=== PATIENT | female | born 1950 | race Caucasian/White ===

== ENCOUNTER 2016-04-12 09:20 | Emergency (ER) | payer OTHER, MEDICARE ==
[2016-04-12] MEDS ORDERED: ACETAMINOPHEN 325 MG TABLET PO ONE (10:17)
[2016-04-12] MEDS ORDERED: ONDANSETRON ODT 4 MG TAB (6 TAB/DSPK) PO PRN (11:27)
--- NOTE | 2016-04-12 11:28 | ER Document Report ---
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 She denies loss of consciousness. The patient states she has had little bit of nausea and felt a little dizzy. She does complain of a mild headache. TRAVEL OUTSIDE OF THE [place] IN LAST 30 DAYS: No COUNTRY TRAVELED TO/FROM: [facility] Onset: Just prior to arrival Onset/Duration: Sudden Quality of pain: Dull Severity: Mild Pain Level: 1 Associated symptoms: denies: Chills, Fever, Shortness of breath Exacerbated by: Denies Relieved by: Denies Similar symptoms previously: No Recently seen / treated by doctor: No - Related Data Allergies/Adverse Reactions: No Known Allergies Allergy (Verified 04/12/16 09:28) Past Medical History - General Information source: Patient - Social History Smoking Status: Never Smoker Cigarette use (# per day): No Chew tobacco use (# tins/day): No Frequency of alcohol use: None Drug Abuse: None Lives with: Family Family History: Arthritis, CAD, CVA, DM, Hyperlipidemia, Hypertension, Malignancy Patient has suicidal ideation: No Patient has homicidal ideation: No - Past Medical History Cardiac Medical History: Reports: None Pulmonary Medical History: Reports: None EENT Medical History: Reports: None Neurological Medical History: Reports: None Endocrine Medical History: Reports: None Renal/ Medical History: Reports: Hx Kidney Stones. Denies: Hx Peritoneal Dialysis Malignancy Medical History: Reports: None GI Medical History: Reports: Hx Gastroesophageal Reflux Disease Musculoskeltal Medical History: Reports Hx Arthritis, Reports Hx Musculoskeletal Deformity, Reports Hx Musculoskeletal Trauma Skin Medical History: Reports None Psychiatric Medical History: Reports: Hx Anxiety, Hx Depression Traumatic Medical History: Reports: Hx Fractures - Ankle Infectious Medical History: Reports: None Past Surgical History: Reports: Hx Appendectomy, Hx Section - 2, Hx Cholecystectomy, Hx Orthopedic Surgery - Ankle surgery for orif - Immunizations Hx Diphtheria, Pertussis, Tetanus Vaccination: No Review of Systems - Review of Systems Constitutional: No symptoms reported EENT: No symptoms reported Cardiovascular: No symptoms reported Respiratory: No symptoms reported Gastrointestinal: See HPI Genitourinary: No symptoms reported Female Genitourinary: No symptoms reported Musculoskeletal: See HPI Skin: No symptoms reported Hematologic/Lymphatic: No symptoms reported Neurological/Psychological: See HPI, Other - Dizziness. denies: Gait changes, Loss of power, Paralysis, Seizure, Lost consciousness Physical Exam - Vital signs Vitals: Temp Pulse Resp BP Pulse Ox 98.1 F 102 H 18 148/76 H 98 04/12/16 09:26 04/12/16 09:26 04/12/16 09:26 04/12/16 09:26 04/12/16 09:26 Notes: Physical exam: GENERAL: A 5-year-old female, alert and oriented 3, no acute distress HEAD: Atraumatic, normocephalic. EYES: Pupils equal round and reactive to light, extraocular movements intact, sclera anicteric, conjunctiva are normal. ENT: TMs normal, nares patent, oropharynx clear without exudates. Moist mucous membranes. NECK: Normal range of motion, supple without lymphadenopathy or JVD. LUNGS: Breath sounds clear to auscultation bilaterally and equal. No wheezes rales or rhonchi. HEART: Regular rate and rhythm without murmurs, rubs or gallops. ABDOMEN: Soft, nontender, normoactive bowel sounds. No guarding, no rebound. No masses appreciated. EXTREMITIES: Normal range of motion, no pitting or edema. No clubbing or cyanosis. NEUROLOGICAL: Cranial nerves II through XII grossly intact. Motor 5 over 5, sensory grossly intact, cerebellar (finger to nose) excellent, the reflexes are symmetrical, her Romberg is negative. She has no difficulty ambulating around the room. Normal speech. PSYCH: Normal mood, normal affect. SKIN: Warm, Dry, normal turgor, no rashes or lesions noted. Course - Vital Signs Vital signs: Temp Pulse Resp BP Pulse Ox 98.1 F 95 18 110/71 96 04/12/16 11:36 04/12/16 11:36 04/12/16 11:36 04/12/16 11:36 04/12/16 11:36 - Diagnostic Test Radiology reviewed: Image reviewed, Reports reviewed - CT of the head shows no acute bleed. CT of the cervical spine shows no bony injury. Discharge - Discharge Clinical Impression: concussion, status post fall, Prehypertension Condition: Stable Disposition: HOME, SELF-CARE Instructions: Concussion ([facility]) Additional Instructions: Recommendations: As we discussed, the CT of the head and cervical spine look good. Take Tylenol for headache over the next 24 hours. He can take Advil for headache after 24 hours. You can take Zofran for any nausea. Rest, drink fluids, see the concussion instruction sheet. Note that your blood pressure was in the high normal range and it is recommended that you have a repeat blood pressure check in the next week. Return to the emergency room for worsening headache, confusion, worsening dizziness or any concerns he getting worse. Forms: Elevated Blood Pressure, Return to Work Referrals: MARISEL VALLECILLOP [Primary Care Provider] - Follow up in 1 week (Follow-up with your primary care doctor for repeat blood pressure check.)
[2016-04-12 11:43] VITALS: BP 110/71
== END 2016-04-12 11:40 | disposition home or self-care (01) ==
LOC: ER 09:20
DX: S06.0X9A Concussion with loss of consciousness of unspecified duration, initial encounter (principal); R03.0 Elevated blood-pressure reading, without diagnosis of hypertension; R11.0 Nausea; R42 Dizziness and giddiness; W19.XXXA Unspecified fall, initial encounter
CPT/HCPCS: 70450; 72125; 99283